=== PATIENT | female | born 1995 | race Caucasian/White ===

== ENCOUNTER 2024-12-06 15:54 | Inpatient (IN) | payer OTHER, SELFPAY ==
[2024-12-06 12:23] VITALS: BP 137/77
--- NOTE | 2024-12-06 12:50 | ED.GENMED ---
History of Present Illness
<Usha Becker PA-C - Last Filed: 12/06/24 15:18>
General
Chief Complaint: Skin Problem
Source: patient
Exam Limitations: none
Time Seen by Provider: 12/06/24 12:49
Nursing documentation reviewed up to this point in time: agreed with
History of Present Illness
History of Present Illness:
29-year-old female presents emergency department today with concerns of redness and swelling noted to her right index finger. Patient states that yesterday, she was playing with her kitten when she got bit. Patient stated that she started to
develop redness right away and went to her PCP who started her on on Augmentin. She had 2 doses of Augmentin. Patient reports that overnight, she started to develop worsening swelling and noticed that the redness started to spread down her hand.
She now states that her finger is firm and she cannot bend her finger. She denies any fevers or chills, nausea or abdominal pain, chest pain, shortness of breath. She history any medications daily. She states that she has been feeling well the
past few days.
Past History
<Usha Becker PA-C - Last Filed: 12/06/24 15:18>
Past History
ED Past Medical History: None
ED Past Surgical History: None
Social History
Tobacco: Non-smoker
Drug: None
Personal: Single
Living: with family
Review of Systems
<Usha Becker PA-C - Last Filed: 12/06/24 15:18>
Review of Systems
All Other Systems: ROS reviewed and negative except as documented in HPI and ROS
Phy Exam
<Usha Becker PA-C - Last Filed: 12/06/24 15:18>
Physical Exam
Physical Exam:
General: Patient is well appearing and in no acute distress; non-toxic
Skin: Warm and dry, erythema and swelling noted over right first index finger extending to first mcp
Head: Normocephalic, atraumatic
Eyes: Sclera non-icteric. EOMs intact.
Cardiac: Regular rate and rhythm, no murmurs
Peripheral Vascular: Brisk capillary refill
Pulm: Normal respiratory effort no wheezes, rales, rhonchi
Musculoskeletal: Patient limited ability to flex right index finger, tenderness to palpation along the flexor sheath.
Neuro: CN II-XII intact, no focal neurologic deficits.
Psychiatric: Appropriate mood and affect.
Course
<Usha Becker PA-C - Last Filed: 12/06/24 15:18>
Orders/Labs/Results
Orders:
Orders
12/06/24 12:30
IV Insert/Care/Rem.- Treatment PRN
12/06/24 12:31
Test Result ONCE
12/06/24 12:48
Complete Blood Count/With Diff Urgent
Comprehensive Metabolic Panel Urgent
HCG, Serum Qualitative Screen Urgent
Comment: Notify provider if positive test present
12/06/24 13:23
CR Finger(s)/thumb Min 2 Vw Rt Urgent
Comment:
Reason For Exam: right finger swelling, bite
12/06/24 13:26
Ketorolac [Toradol] 15 mg IV NOW STA
12/06/24 14:31
Ampicillin/Sulbactam 3 G [Unasyn] 3 gm 0.9% Sodium Chloride 100 ml [Nss] 100 ml IV NOW
12/06/24 14:33
Vancomycin [Vancocin] 2,000 mg 0.9% Sodium Chloride 500 ml [Nss] 500 ml IV NOW
Abnormal Lab Results
12/06/24
12:48
MCH 31.7 H pg
(27.0-31.0)
MPV 10.9 H fL
(7.4-10.4)
Monocytes % 10.2 H %
(1.7-9.3)
Glucose 124 H mg/dl
(70-99)
Total Bilirubin 1.4 H mg/dl
(0.2-1.3)
12/06/24 12:48
12/06/24 12:48
Vital Signs
Initial and Last Documented VS:
Initial Vital Signs
Temp Pulse Resp BP Pulse Ox
98.1 F 92 18 137/77 98
12/06/24 12:23 12/06/24 12:23 12/06/24 12:23 12/06/24 12:23 12/06/24 12:23
Last Documented Vital Signs
Temp Pulse Resp BP Pulse Ox
98.1 F 92 18 137/77 98
12/06/24 12:23 12/06/24 12:23 12/06/24 12:23 12/06/24 12:23 12/06/24 12:23
<Migdalia Moore MD - Last Filed: 12/06/24 13:36>
Orders/Labs/Results
Orders:
Orders
12/06/24 12:30
IV Insert/Care/Rem.- Treatment PRN
12/06/24 12:31
Test Result ONCE
12/06/24 12:48
Complete Blood Count/With Diff Urgent
Comprehensive Metabolic Panel Urgent
HCG, Serum Qualitative Screen Urgent
Comment: Notify provider if positive test present
12/06/24 13:23
CR Finger(s)/thumb Min 2 Vw Rt Urgent
Comment:
Reason For Exam: right finger swelling, bite
12/06/24 13:26
Ketorolac [Toradol] 15 mg IV NOW STA
12/06/24 14:31
Ampicillin/Sulbactam 3 G [Unasyn] 3 gm 0.9% Sodium Chloride 100 ml [Nss] 100 ml IV NOW
12/06/24 14:33
Vancomycin [Vancocin] 2,000 mg 0.9% Sodium Chloride 500 ml [Nss] 500 ml IV NOW
Abnormal Lab Results
12/06/24
12:48
MCH 31.7 H pg
(27.0-31.0)
MPV 10.9 H fL
(7.4-10.4)
Monocytes % 10.2 H %
(1.7-9.3)
Glucose 124 H mg/dl
(70-99)
Total Bilirubin 1.4 H mg/dl
(0.2-1.3)
12/06/24 12:48
12/06/24 12:48
Vital Signs
Initial and Last Documented VS:
Initial Vital Signs
Temp Pulse Resp BP Pulse Ox
98.1 F 92 18 137/77 98
12/06/24 12:23 12/06/24 12:23 12/06/24 12:23 12/06/24 12:23 12/06/24 12:23
Last Documented Vital Signs
Temp Pulse Resp BP Pulse Ox
98.1 F 92 18 137/77 98
12/06/24 12:23 12/06/24 12:23 12/06/24 12:23 12/06/24 12:23 12/06/24 12:23
<Usha Becker PA-C - Last Filed: 12/06/24 15:18>
MDM/Problems Addressed
Differential Diagnosis Includes:
see below
MDM/Problems Addressed:
NUMBER AND COMPLEXITY OF PROBLEMS ADDRESSED AT THE ENCOUNTER
� Chronic conditions affecting care: n/a
� Acute Exacerbation and/or Progression of Chronic Illness:
� Differential Diagnosis includes: flexor tenosynovitis, cellulitis, abrasion, laceration, erysipelas
AMOUNT AND/OR COMPLEXITY OF DATA TO BE REVIEWED AND ANALYZED
� I performed an independent evaluation of and my interpretation is:
X-rays: no fracture or dislocation on evidence of osteomyelitis
Laboratory Studies: no leukocytosis noted
Other:
� Review of other/old records: Reviewed previous records, patient seen on 07/05/2014 for cellulitis of the leg and foot
� Clinical information was obtained by an independent historian: mom present with patient who also provided history
� Prescriptions/Medications Considered but not given: none
� Further testing considered but not performed: n/a
RISK OF COMPLICATIONS AND/OR MORBIDITY OR MORTALITY OF PATIENT MANAGEMENT
� Social determinants of health affecting care: n/a
� Discussion with other providers: ER attending
� Escalation of care including admission/observation vs risk of discharge considered:
29-year-old female presents emergency department today with redness and swelling of her right index finger. Patient reports that this occurred following a cat bite. She had 2 doses of Augmentin and overnight noticed rapid swelling of her finger.
On exam, she holds her finger in slight passive flexion and has a lot of tenderness to palpation over the flexor tendon sheath. Concern for possible flexor tenosynovitis versus cellulitis. Did discuss case with orthopedist on-call, plan now to
admit for IV antibiotics and patient will be assessed by orthopedist, patient will not go to the OR at this time. She is afebrile. No leukocytosis, no systemic symptoms. Unasyn vancomycin started. Case discussed with hospitalist.
<Usha Becker PA-C - Last Filed: 12/06/24 15:18>
*Critical Care Note
Total Time (30-74mins, 75-104mins- exclusive of procedures): Not Applicable
ED Attending Note
<Usha Becker PA-C - Last Filed: 12/06/24 15:18>
-
Portions of this chart may have been created with voice recognition software.� Occasional wrong word or��sound alike� substitutions may have occurred due to the inherent limitations of voice recognition software.
<Migdalia Moore MD - Last Filed: 12/06/24 13:36>
ED Attending Note
Patient seen and examined by attending physician: Yes
I performed the substantive portion of visit, reviewed & personally made and approve the management plan that is documented in note by myself or IGNACIO.: Yes
ED Attending Note:
I have seen and evaluated the patient with a [id number] encounter. I have spoken to the [PA] and involved in the medical history, the physical exam, medical decision making.
Evaluation and management service: agree unless noted differently below.
Results interpretation: agree unless noted differently below.
29-year-old female presenting to the emergency department with finger swelling after a cat bite. Patient states about 24 hours ago she was bit by a cat. She went to her primary care doctor who started her on Augmentin. She has had 2 doses. She
states that since then the redness and swelling has worsened. She denies any fevers. She is having some paresthesias. She is having difficulty with flexion secondary to pain. On exam patient's finger is held in flexion with erythema across the
dorsal MCP that wraps around to the middle phalanx. She does have tenderness over her flexor tendon. She does not have any pain with extension. She does have pain with flexion at the DIP will significantly and mild pain at the PIP and MCP.
Concern for flexor tenosynovitis given that she does have some of the clinical signs. Will discuss with orthopedics. Patient will likely need admission for IV antibiotics.
Discharge Plan
Departure
Patient Disposition: Admit
Date of Disposition: 12/06/24
Time of Disposition: 14:54
Admit to: Med/Surg
Presentation/result/management discussed w/ accepting MD/DO: Hospitalist
Condition: Fair
Discharge Problem:
Cat bite of finger
Prescriptions:
No Action
amoxicillin-pot clavulanate [Augmentin] 875-125 mg Tablet
1 tab PO BID
lisdexamfetamine 40 mg Capsule
40 mg PO DAILYPRN PRN (Reason: focus)
melatonin 10 mg Tablet
10 mg PO HSPRN PRN (Reason: sleep)
Beef Womens Vitality
1 cap PO DAILY
Nutrafol Women Hair Supplement
1 cap PO DAILY
Referrals:
Latrice Locke MD [Family Provider] -
Interventions
Interventions:
*Risk Screen - Suicide Last Done: 12/06/24 12:23
*General Assessment Last Done: 12/06/24 12:23
*Neglect/Abuse Screening Last Done: 12/06/24 12:23
ED-Skin Assessment Last Done: 12/06/24 12:59
Discharge Date and Time
Print Language: ERITREAN
[2024-12-06 13:04] LABS: % Basophils 0.8 % (0-2); % Eosinophils 1.9 % (0-6); % Immature Granulocytes 0.3 % (0-0.5); % Lymphocytes 22.3 % (20.5-51.1); % Monocytes 10.2 % (1.7-9.3); % Neutrophils 64.5 % (42.2-75.2); Absolute Basophils 0.1 10^3/uL (0-0.2); Absolute Eosinophils 0.1 10^3/uL (0-0.7); Absolute Lymphocytes 1.4 10^3/uL (1.2-3.4); Absolute Monocytes 0.6 10^3/uL (0.1-0.6); Hematocrit 41.1 % (37.0-47.0); Mean Corp Hgb Conc. 34.1 g/dL (33.0-37.0); Mean Corpuscular Hgb 31.7 pg (27.0-31.0); Mean Corpuscular Volume 93.2 fL (81.0-99.0); Mean Platelet Volume 10.9 fL (7.4-10.4); Nucleated Red Blood Cells % 0 %; Platelet Count 197 10^3/uL (130-400); Red Blood Cell Count 4.41 10^6/uL (4.20-5.40); Red Cell Dist. Width 12.5 % (11.5-14.5); White Blood Cell Count 6.2 10^3/uL (4.8-10.8)
[2024-12-06 13:20] LABS: ALT (SGPT) 25 U/L (0-35); AST (SGOT) 24 U/L (14-36); Albumin 4.3 g/dl (3.5-5.0); Alkaline Phosphatase 59 U/L (38-126); Blood Urea Nitrogen 14 mg/dl (7-17); Calcium 8.8 mg/dl (8.4-10.2); Carbon Dioxide 23 mmol/L (22-30); Chloride 104 mmol/L (98-107); Glucose 124 mg/dl (70-99); Potassium 4.2 mmol/L (3.5-5.1); Sodium 137 mmol/L (135-145); Total Bilirubin 1.4 mg/dl (0.2-1.3); Total Protein 6.7 g/dl (6.3-8.2); eGFR > 60.00
[2024-12-06] MEDS: TORADOL 15 MG IV (13:33)
[2024-12-06 13:51] LABS: HCG, Serum Qualitative Screen Negative
[2024-12-06 14:16] VITALS: BMI 29.2
[2024-12-06] MEDS: UNASYN IV ×2 (14:53→20:26)
--- NOTE | 2024-12-06 15:24 | HPS.HSE ---
Family Physician
-
Family Physician: Latrice Locke MD
Chief Complaint
-
right index finger pain
History of Present Illness
Ms. Becky Hawkins is a 29 yo woman without significant past medical history presents to the ER with redness and swelling noted to right index finger.
She went to see her friend's kittens yesterday and got bit. She developed redness and was prescribed Augmentin by PCP. Redness and swelling progressed, today her finger is difficulty to bend bringing her to the ER.
She states the kittens are up to date with shots and patient received TDap vaccine at PCP office yesterday.
No fevers/chills. No chest pain or shortness of breath. No nausea/vomiting/diarrhea.
Medical History
Past Medical History
Past Medical History: Reports None
Past Surgical History: Reports None
Social History
Tobacco: Non-smoker
Alcohol: Occasional
Family History
Family History: Not pertinent
Allergies / Home Medications
Allergies reflects when Allergies were last updated in [facility].
Home Medications with original date entered in [facility]
Allergy/Medication List:
Allergies
Allergy/AdvReac Type Severity Reaction Status Date / Time
gluten Allergy Nausea / Verified 12/06/24 14:41
Vomiting
Home Medications
Beef Womens Vitality 1 cap PO DAILY 12/06/24
Nutrafol Women Hair Supplement 1 cap PO DAILY 12/06/24
amoxicillin 875 mg-potassium clavulanate 125 mg tablet 1 tab PO BID 12/06/24
lisdexamfetamine 40 mg capsule 40 mg PO DAILYPRN PRN focus 12/06/24
melatonin 10 mg tablet 10 mg PO HSPRN PRN sleep 12/06/24
Review of Systems
-
History Source: Patient
A 12 point ROS was completed and negative except as noted: Yes
Physical Exam
Vital Signs
Vital Signs
Temp Pulse Resp BP Pulse Ox
98.1 F 92 18 137/77 98
12/06/24 12:23 12/06/24 12:23 12/06/24 12:23 12/06/24 12:23 12/06/24 12:23
Physical Exam
General: No Apparent Distress and Conversant
HEENT: PERRLA
Respiratory: Clear; No Wheezes
Cardiac: S1/S2 and Regular Rhythm
GI: Soft and Non Tender
Musculoskeletal: Other (right second digit with inability to flex PIP, redness slightly progressed post marked borders from yesterday, tender to touch )
Skin: Warm and Dry; No Rash
Neuro: AO x 3
Psych: Calm
Laboratory Results
-
12/06/24 12:48
12/06/24 12:48
Laboratory Results
Total Bilirubin 1.4 mg/dl (0.2-1.3) H 12/06/24 12:48
AST 24 U/L (14-36) 12/06/24 12:48
ALT 25 U/L (0-35) 12/06/24 12:48
Alkaline Phosphatase 59 U/L (38-126) 12/06/24 12:48
Data Reviewed
-
Diagnostic Radiology: Report Reviewed by me
Lab Data: Labs Reviewed by me
Impression/Plan
-
Ms. Becky Hawkins is a 29 yo woman without significant past medical history presents to the ER with redness and swelling noted to right index finger post cat bite, with progression after initiation or oral antibiotics.
Triage VS: T 98.1, P 92, RR 18, BP 137/77, SpO2 98%
Labs: WBC 6.2, Hg 14.0, PLT 197, Na 137, K+ 4.2, Cl 104, CO2 23, Cr 0.7, Glucose 124, T. Bili 1.4, AST 24, ALT 25, Alk Phos 59
HCG neg
Finger X-Ray
IMPRESSION:
Mild diffuse swelling about the second digit. No acute fracture or dislocation. Joint spaces are intact. No radiopaque foreign bodies. No overt radiographic evidence for osteomyelitis.
MAR: IV Unasyn, Vancomycin
Concern for Cellulitis versus Flexor Tenosynovitis s/p cat bite
-Per ER, spoke to Orthopedist semiconductor processing group leader and no plan for OR at this time
-admit to med/surg
-continue IV Unasyn, do not need to continue Vanc (confirmed with ID)
-per patient, kittens are up to date with vaccines; patient had TDAP vaccines yesterday at PCP office
-Ortho consult
-ID consult
-NPO after MN in case need for OR
-IV Toradol PRN pain
DVT PPx SCD (in case need for OR)
FULL CODE
[2024-12-06] MEDS: VANCOCIN 540 MG IV (15:28)
--- NOTE | 2024-12-06 17:06 | CON.ID ---
Consultation
-
Date/Time Consultation Requested: 12/06/2024 1539
Date/Time Consultation Performed: 12/06/2024 1700
Requesting Provider: Dr. White
Performing Provider: Dr. Echeverria
Reason for Consultation: Cat bite; right hand
Chief Complaint / Past History
History of Present Illness
Becky Hawkins is a 29-year-old female being evaluated at the request of Dr. White regarding a cat bite to the right hand. History is obtained from chart review, along with patient interview.
Patient is without significant past medical history and reports her friend recently acquired to [employer]. The patient notes that they were feral, and not completely acclimated to human interaction. Yesterday morning the kittens needed to go to the
vet, and while collecting them, one of the kittens bit the patient on the right index finger just distal to the MCP joint. The patient reports that she noted some blood at the site of the bite which she cleaned with soap and water. Later in the
day, the patient contacted her PCP and was prescribed Augmentin. The patient took a dose last evening, and again a dose this morning, but the right index finger area continued to swell and she was advised to come to the emergency room for further
evaluation.
At this time she denies any wrist pain but notes some mild amount of swelling. Overall the index finger does not have significant pain but 'feels weird' and swollen. She denies any lymphangitic spread up her forearm. She denies any fevers or
chills. She has received the tetanus shot in the ER. The patient reports that the kittens have been previously checked out by the vet, and have received rabies vaccinations.
Past History
Past Medical History: None
Past Surgical History: None
Allergy History:
gluten Allergy (Verified 12/06/24 14:41)
Nausea / Vomiting
Medications Reviewed: Yes
Current Antibiotics:
Unasyn
Social History
Tobacco: Non-Smoker
Alcohol: None
Drug: Marijuana (occ)
Personal: Single
Living: With Family
Employment: Employed
Family History
Family History: Not Pertinent
Review of Systems
Vital Signs
Temp Pulse Resp BP Pulse Ox
98.1 F 92 18 137/77 98
12/06/24 12:23 12/06/24 12:23 12/06/24 12:23 12/06/24 12:23 12/06/24 12:23
Physical Exam
Physical Exam
Constitutional: No Acute Distress, Comfortable and Non-toxic
Eyes: No Conjunctival Hemorrhage and Sclera Anicteric
Oral: No Thrush and No Ulcers
Cardiovascular: Regular Rate and S1/S2; Negative S3/S4
Pulmonary: Clear; Negative Wheezes, Rales or Rhonchi
Gastrointestinal: Soft, Non Tender and Non Distended
Extremities: Other (Right index finger swollen with mild to moderate erythema. Mild tenderness. Some decrease in range of motion. No purulence.)
Skin: Warm and Dry
Neurological: Awake and Alert
Psychological: Calm
Lab / Diagnostic Study Results
12/06/24 12:48
12/06/24 12:48
Abs Immat Gran (auto) 0.0 10^3/uL (0-0.05) 12/06/24 12:48
Absolute Neuts (auto) 4.0 10^3/uL (1.4-6.5) 12/06/24 12:48
Absolute Lymphs (auto) 1.4 10^3/uL (1.2-3.4) 12/06/24 12:48
Absolute Monos (auto) 0.6 10^3/uL (0.1-0.6) 12/06/24 12:48
Absolute Basos (auto) 0.1 10^3/uL (0-0.2) 12/06/24 12:48
Immature Gran % 0.3 % (0-0.5) 12/06/24 12:48
Neutrophils % 64.5 % (42.2-75.2) 12/06/24 12:48
Lymphocytes % 22.3 % (20.5-51.1) 12/06/24 12:48
Monocytes % 10.2 % (1.7-9.3) H 12/06/24 12:48
Eosinophils % 1.9 % (0-6) 12/06/24 12:48
Basophils % 0.8 % (0-2) 12/06/24 12:48
Microbiology Results
Imaging:
12/06/2024 X-ray right hand: Mild diffuse swelling around the second digit. No acute fracture or dislocation. Joint spaces are intact. No radiopaque foreign bodies. No overt radiographic evidence for osteomyelitis.
Assessment / Plan
Cat bite right index finger
Cellulitis right hand
Recommendations:
Continue Unasyn. No need for further vancomycin.
Follow-up for clinical improvement. Patient will likely need 24 to 36 hours of IV antibiotics, and if improved at that point can be transitioned back to Augmentin.
Extremity elevation.
Follow white count and temperature curve.
Care Review
Plan reviewed with: Physician (Hospitalist)
[2024-12-06] MEDS: BENADRYL 25 MG IV (17:07)
[2024-12-06 17:55] VITALS: BP 136/75
[2024-12-06 18:02] VITALS: BMI 29.0
--- NOTE | 2024-12-06 22:18 | CON.MD ---
Consultation - Medical
-
Full consult dictated. 29 yo RHD female admitted for cat bite to right hand which occurred yesterday while visiting a friend. She noted increased pain and swelling and was brought to and admitted for IV antibiotics for cellulitis. Patient seen
by ID and started on Unasyn. Patient denies fevers but notes swelling and erythema without drainage. She denies streaking. She had a reaction to Vancomycin and it was discontinued. Parents at the patients bedside. Patient notes that erythema is
improving about the dorsum of the hand. Puncture wounds noted about the PIP joint with swelling and erythema. Erythema outlined on hand and finger. No wrist involvement and no streaking. NVI distally. Labs reveal normal WBC. Xrays reveal no
fractures but soft tissue swelling noted. Impression: Cat bite with cellulitis. No evidence of flexor tenosynovitis currently. Continue Unasyn. Will follow. Erythema improving. NPO after MN in case symptoms worsen significantly overnight.
[2024-12-06 23:20] VITALS: BP 111/69
[2024-12-07] MEDS: UNASYN IV ×4 (01:04→21:08)
[2024-12-07] MEDS: MELATONIN 10 MG PO (04:09)
[2024-12-07 06:13] LABS: % Basophils 0.9 % (0-2); % Eosinophils 3.4 % (0-6); % Immature Granulocytes 0.2 % (0-0.5); % Lymphocytes 25.6 % (20.5-51.1); % Monocytes 10.3 % (1.7-9.3); % Neutrophils 59.6 % (42.2-75.2); Absolute Basophils 0.1 10^3/uL (0-0.2); Absolute Eosinophils 0.2 10^3/uL (0-0.7); Absolute Lymphocytes 1.6 10^3/uL (1.2-3.4); Absolute Monocytes 0.7 10^3/uL (0.1-0.6); Absolute Neutrophils 3.8 10^3/uL (1.4-6.5); Hematocrit 40.4 % (37.0-47.0); Hemoglobin 13.6 g/dL (12.0-16.0); Mean Corp Hgb Conc. 33.7 g/dL (33.0-37.0); Mean Corpuscular Volume 95.1 fL (81.0-99.0); Mean Platelet Volume 11.2 fL (7.4-10.4); Nucleated Red Blood Cells % 0 %; Platelet Count 188 10^3/uL (130-400); Red Blood Cell Count 4.25 10^6/uL (4.20-5.40); Red Cell Dist. Width 12.6 % (11.5-14.5); White Blood Cell Count 6.4 10^3/uL (4.8-10.8)
[2024-12-07 06:45] LABS: Blood Urea Nitrogen 16 mg/dl (7-17); Calcium 8.5 mg/dl (8.4-10.2); Carbon Dioxide 26 mmol/L (22-30); Chloride 105 mmol/L (98-107); Estimated Creatinine Clearance > 125 ml/min; Glucose 90 mg/dl (70-99); Magnesium 2.1 mg/dl (1.6-2.3); Potassium 4.4 mmol/L (3.5-5.1); Sodium 139 mmol/L (135-145); eGFR > 60.00
[2024-12-07 07:25] VITALS: BP 89/63
[2024-12-07 08:30] VITALS: BP 100/68
--- NOTE | 2024-12-07 08:50 | W.PN.UPDATE ---
Update Note
Progress Note Update
Patient seen and evaluated by Orthopedic surgery this morning. The patient is a 29-year-old [id number] female admitted for cat bite to right index finger. DOI: 12/05/2024. Since admission, she endorses improvement with erythema, edema, as
well as pain. She denies any fevers, chills or night sweats. Labs reveal normal WBC. Afebrile.
PE: Physical examination of the right hand, with attention to the right index finger, reveals hue of erythema over the dorsum of the hand and right index finger. Erythema outlined on hand and finger; does not extend beyond markings. 2 puncture
wounds noted about the extensor and flexor aspects of the PIP joint. No drainage. No wrist involvement and no streaking. Generalized edema of right index finger in comparison to the contralateral side. Mild tenderness to palpation. No pain with
passive extension of the digit. Unable to demonstrate a full composite fist, although patient reports improvement with PIP joint ROM. Sensation intact to light touch. Capillary refill is less than 2 seconds.
Assessment: Cat bite with cellulitis. No evidence for flexor tenosynovitis currently. Patient endorses improvement in symptoms since admission.
Plan:
1) Continue with IV antibiotics per ID. Currently on Unasyn.
2) Diet ordered.
3) Encouraged digital range of motion as tolerated. Ice therapy and elevation for edema control. May consider incorporation of warm dilute Hibiclens soaks TID.
4) Orthopedic surgery will continue to follow.
--- NOTE | 2024-12-07 11:31 | W.PN.ID1 ---
Date of Service
Date of Service: December 07, 2024
Today's Communication
Continue antibiotics.
Assessment / Plan
Cat bite right index finger
Cellulitis right hand
Possible drug rash - vanco vs unasyn
Recommendations:
Continue Unasyn.
Follow for clinical improvement. If continued decrease swelling and erythema tomorrow, will likely transition back to Augmentin.
Extremity elevation.
Follow white count and temperature curve.
Follow-up for any change in apparent rash.
����������������������������������������������������������
Chief Complaint
-: Other (Right hand cat bite)
Subjective / Review of Systems
Patient seen and examined. Reports right hand is feeling improved. Nursing contacted me earlier this morning and noted a very fine erythematous rash on the arms, and possibly the trunk. At present, the patient denies any pruritus. Does admit to
having scalp pruritus following vancomycin infusion yesterday.
Review of Systems: No Fever and No Chills
Vital Signs / Physical Exam
Vital Signs
Vital Signs
Temp Pulse Resp BP Pulse Ox
98 F 67 16 89/63 99
12/07/24 07:25 12/07/24 07:25 12/07/24 07:25 12/07/24 07:25 12/07/24 07:25
Physical Exam
Constitutional: No Acute Distress, Comfortable and Non-toxic
Pulmonary: Non Labored
Gastrointestinal: Non Distended
Musculoskeletal: Other (Right index finger with decreased erythema and swelling. Increased ROM)
Skin: Rash (Very faint erythematous macular/reticular rash noted on arms, and to a lesser degree on trunk. Nonpruritic)
Neurological: Awake and Alert
Psychological: Calm
Objective Data
Lab Data
Lab Results
12/07/24 05:46
12/07/24 05:46
Estimated Creat Clear > 125 ml/min 12/07/24 05:46
Total Bilirubin 1.4 mg/dl (0.2-1.3) H 12/06/24 12:48
AST 24 U/L (14-36) 12/06/24 12:48
ALT 25 U/L (0-35) 12/06/24 12:48
Alkaline Phosphatase 59 U/L (38-126) 12/06/24 12:48
Most recent labs reviewed.
Imaging:
12/06/2024 X-ray right hand: Mild diffuse swelling around the second digit. No acute fracture or dislocation. Joint spaces are intact. No radiopaque foreign bodies. No overt radiographic evidence for osteomyelitis.
--- NOTE | 2024-12-07 12:39 | W.PN.HOSP.TC ---
Today's Communication/Plan
-
Monitor vital signs see plan
Continue antibiotics
If continues to improve then hopeful discharge tomorrow
Assessment / Plan
Assessment / Plan
General: No Apparent Distress and Conversant
HEENT: PERRLA
Respiratory: Clear; No Wheezes
Cardiac: S1/S2 and Regular Rhythm
Musculoskeletal: Other (right second digit with inability to flex PIP, redness slightly )
Neuro: AO x 3
Psych: Calm
Cellulitis right hand secondary to cat bite
Concern for tenosynovitis
Continue with antibiotics per infectious disease
No plan for surgery per Ortho
Possible drug-related rash secondary to vancomycin versus Unasyn
Mild bilirubin elevation
No abdominal pain
Follow-up outpatient
DVT prophylaxis
SCD's
Full code
Anticipated Discharge: Within 24 hours
Subjective/Interval History
-
Date of Service: December 07, 2024
Denies pain
Objective Data
-
Labs:
Laboratory Results
12/07/24
05:46
WBC 6.4
Hgb 13.6
Hct 40.4
Plt Count 188
Sodium 139
Potassium 4.4
Chloride 105
Carbon Dioxide 26
BUN 16
Creatinine 0.8
Glucose 90
Calcium 8.5
Vital Signs:
Vital Signs
Temp Pulse Resp BP Pulse Ox
98 F 67 16 89/63 99
12/07/24 07:25 12/07/24 07:25 12/07/24 07:25 12/07/24 07:25 12/07/24 07:25
I&O
12/06/24 12/07/24 12/08/24
06:59 06:59 06:59
Intake Total 240 / 240
Output Total 2 / 2
Balance 238 / 238
[2024-12-07 15:05] VITALS: BP 100/76
[2024-12-07] MEDS: BENADRYL 50 MG PO ×2 (16:57→22:57)
--- NOTE | 2024-12-07 17:37 | CM ---
Alert awake oriented patient who lives with her parents Savannah and Jonathan who lives in a 2 stroy home with 1 stesp to enter and 14 steps to bed/bath room She is independent in driving and in all activities of daily living.Offered VN she declined.No
adaptive devices.
Never had VN/SNF
Pharmacy [facility] [address]
PCP Efrain
PLAN Home no needs
[2024-12-07 23:33] VITALS: BP 104/58
[2024-12-08] MEDS: UNASYN IV ×2 (01:02→07:50)
[2024-12-08] MEDS: BENADRYL 50 MG PO (04:58)
[2024-12-08 07:20] VITALS: BP 110/54
[2024-12-08 08:19] LABS: % Basophils 0.4 % (0-2); % Eosinophils 5.8 % (0-6); % Immature Granulocytes 0.4 % (0-0.5); % Lymphocytes 15.2 % (20.5-51.1); % Monocytes 9.1 % (1.7-9.3); % Neutrophils 69.1 % (42.2-75.2); Absolute Eosinophils 0.5 10^3/uL (0-0.7); Absolute Lymphocytes 1.2 10^3/uL (1.2-3.4); Absolute Monocytes 0.7 10^3/uL (0.1-0.6); Absolute Neutrophils 5.5 10^3/uL (1.4-6.5); Hematocrit 43.4 % (37.0-47.0); Hemoglobin 14.9 g/dL (12.0-16.0); Mean Corp Hgb Conc. 34.3 g/dL (33.0-37.0); Mean Corpuscular Hgb 32.3 pg (27.0-31.0); Mean Corpuscular Volume 93.9 fL (81.0-99.0); Mean Platelet Volume 11.4 fL (7.4-10.4); Nucleated Red Blood Cells % 0 %; Platelet Count 196 10^3/uL (130-400); Red Blood Cell Count 4.62 10^6/uL (4.20-5.40); Red Cell Dist. Width 12.5 % (11.5-14.5)
--- NOTE | 2024-12-08 08:38 | W.PN.UPDATE ---
Update Note
Progress Note Update
Patient seen and evaluated by Orthopedic surgery this morning. Feeling even better than yesterday. Afebrile. WBC within normal limits. Erythema, edema, as well as pain with continued improvement since evaluation yesterday.
PE: Physical examination of the right hand, with attention to the right index finger, reveals significantly improved erythema over the dorsum of the hand and right index finger. 2 puncture wounds noted about the extensor and flexor aspects of the
PIP joint. No drainage. No wrist involvement and no streaking. Generalized edema of the right index finger improved. No significant tenderness to palpation. No pain with passive extension of the digit. She is almost able to demonstrate a full
composite fist without pain. Sensation intact to light touch. Capillary refill is less than 2 seconds.
Assessment: Cat bite with cellulitis; improved.
Plan:
1) Patient has made large improvements since initiation of IV antibiotics. Unfortunately, she is dealing with rash/pruritus. Much less swelling, but understands this will persist for a bit.
2) Continue with IV antibiotics per ID recommendation, and treatment per the primary team. Discussed with ID, plan to transition back to PO Abx for 10-14 day course upon discharge.
3) Encouraged digital range of motion as tolerated. Ice therapy and elevation for edema control. May consider incorporation of warm dilute Hibiclens soaks TID. As swelling improves, so will stiffness and ROM.
4) Orthopedics follow-up as an outpatient in 1 week for clinical assessment. Orthopedic surgery to sign off. D/C plan with follow-up info updated.
--- NOTE | 2024-12-08 09:00 | W.PN.ID1 ---
Date of Service
Date of Service: December 08, 2024
Today's Communication
Continue antibiotics. See below�
Assessment / Plan
Cat bite right index finger
Cellulitis right hand
Possible drug rash - vanco vs unasyn
Recommendations:
Overall, right index finger is looking good.
Discontinue further Unasyn. Given rash progression, will avoid ampicillin.
Will transition to oral cephalexin 500 mg p.o. 4 times daily and doxycycline 100 mg p.o. twice daily for an additional 10 to 14 days.
I have asked the patient to call me tomorrow or the next day and tell me how the rash has doing.
Will follow-up in office if necessary.
Benadryl as needed.
����������������������������������������������������������
Chief Complaint
-: Other (Right second finger hand cat bite)
Subjective / Review of Systems
Patient seen and examined. Reports right index finger he is feeling improved. Unfortunately, has had some extension of her rash, which is now somewhat itchy.
Vital Signs / Physical Exam
Vital Signs
Vital Signs
Temp Pulse Resp BP Pulse Ox
98 F 64 16 110/54 99
12/08/24 07:20 12/08/24 07:20 12/08/24 07:20 12/08/24 07:20 12/08/24 07:20
Physical Exam
Constitutional: No Acute Distress, Comfortable and Non-toxic
Eyes: Sclera Anicteric
Pulmonary: Non Labored; Negative Wheezes
Extremities: Other (Right index finger with decreased swelling, decreased erythema, increased range of motion. No tenderness with palpation.)
Skin: Rash (Generalized mild erythematous rash on body. Few areas of pustulosis noted on neck.)
Neurological: Awake and Alert
Psychological: Calm
Objective Data
Lab Data
Lab Results
12/08/24 07:05
12/07/24 05:46
Estimated Creat Clear > 125 ml/min 12/07/24 05:46
Total Bilirubin 1.4 mg/dl (0.2-1.3) H 12/06/24 12:48
AST 24 U/L (14-36) 12/06/24 12:48
ALT 25 U/L (0-35) 12/06/24 12:48
Alkaline Phosphatase 59 U/L (38-126) 12/06/24 12:48
Most recent labs reviewed.
Imaging:
12/06/2024 X-ray right hand: Mild diffuse swelling around the second digit. No acute fracture or dislocation. Joint spaces are intact. No radiopaque foreign bodies. No overt radiographic evidence for osteomyelitis.
Care Review
Plan reviewed with: Physician (Hospitalist; Orthopedics)
[2024-12-08] MEDS: VIBRAMYCIN 100 MG PO (09:49)
--- NOTE | 2024-12-08 10:30 | W.PN.HOSP.TC ---
Today's Communication/Plan
-
monitor vitals
see plan
dc today on PO abx
patient will f/u with ID and ortho outpatient
time of discharge 36 minutes
Assessment / Plan
Assessment / Plan
General: No Apparent Distress and Conversant
HEENT: PERRLA
Respiratory: Clear; No Wheezes
Cardiac: S1/S2 and Regular Rhythm
Musculoskeletal: Other (right second digit mild erythema,improving)
Neuro: AO x 3
Psych: Calm
Cellulitis right hand secondary to cat bite
Concern for tenosynovitis
Continue with antibiotics per infectious disease
No plan for surgery per Ortho
Possible drug-related rash secondary to vancomycin versus Unasyn; abx switched to keflex and doxy. Patient will f/u with ID outpatient
Mild bilirubin elevation
No abdominal pain
Follow-up outpatient
DVT prophylaxis
SCD's
Full code
Anticipated Discharge: Today
Subjective/Interval History
-
Date of Service: December 08, 2024
denies pain
Objective Data
-
Labs:
Laboratory Results
12/08/24
07:05
WBC 8.0
Hgb 14.9
Hct 43.4
Plt Count 196
Vital Signs:
Vital Signs
Temp Pulse Resp BP Pulse Ox
98 F 64 16 110/54 99
12/08/24 07:20 12/08/24 07:20 12/08/24 07:20 12/08/24 07:20 12/08/24 07:20
I&O
12/07/24 12/08/24 12/09/24
06:59 06:59 06:59
Intake Total 2039
Output Total
Balance 2037
--- NOTE | 2024-12-08 10:35 | W.DCSUMMARY ---
Discharge Summary
Discharge Data
Date of Admission: 12/06/24
Date of Discharge: 12/08/24
-
Pending Results: No
Hospital Course
29-year-old female came to the hospital after cat bite with right hand cellulitis and suspected tenosynovitis. X-ray was concerning for cellulitis. Patient was seen by orthopedics and infectious disease throughout hospitalization. Since patient
symptoms were improving with antibiotics orthopedics did not recommended any surgery and wanted patient to follow-up with them outpatient. Patient had up possible drug-related rash secondary to either vancomycin or Unasyn. Given these findings
infectious disease switched patient's antibiotics to Keflex and doxycycline on discharge. Patient also had mild bilirubin elevation for which she was instructed to follow-up outpatient for repeat labs with PCP. Once her symptoms continue to
improve, she was then discharged home with instructions to follow-up with all her physicians outpatient.
Discharge Plan
-
Patient Disposition: Home (Routine Discharge)
Discharge Diagnosis/Procedures: Cellulitis right hand secondary to cat bite
Concern for tenosynovitis
Mild bilirubin elevation
Diet: As tolerated
Activity: As tolerated
Driving Restrictions: As prior to admission
Bathing Restrictions: None
Blood Work: CMP next week with Pcp
Referrals:
Josh Downs MD [Active] - in one week
Mervin Echeverria DO [Active] - in one to two weeks
Latrice Locke MD [Family Provider] - in less than 1 week
Prescriptions:
New
diphenhydramine HCl 50 mg Capsule
25 mg PO Q6HPRN PRN (Reason: itch) Qty: 30 0RF
doxycycline hyclate 100 mg Capsule
100 mg PO Q12 14 Days Qty: 28 0RF
cephalexin 500 mg Capsule
500 mg PO QID 14 Days Qty: 56 0RF
Probiotic 10 billion cell capsule
10,000 mmu cells PO DAILY Qty: 20 0RF
Continued
lisdexamfetamine 40 mg Capsule
40 mg PO DAILYPRN PRN (Reason: focus)
melatonin 10 mg Tablet
10 mg PO HSPRN PRN (Reason: sleep)
Beef Womens Vitality
1 cap PO DAILY
Nutrafol Women Hair Supplement
1 cap PO DAILY
Discontinued
amoxicillin-pot clavulanate [Augmentin] 875-125 mg Tablet
1 tab PO BID
Discharge Orders:
Discharge Patient (As Directed); Ordered 12/08/24
Ordered By: Dalton Townsend
Discharge Date and Time
Discharge Date/Time: 12/08/24 13:21
Print Language: AUSTRAL[place]
--- NOTE | 2024-12-08 11:13 | CM ---
MD entered order for discharge.
Spoke with pt she said she was ready for discharge.
She said her parents were driving her home.
Offered VN she declined need.
PLAN Home no needs
[2024-12-08 11:51] VITALS: BP 123/81
== END 2024-12-08 13:21 | disposition home or self-care (01) | DRG 605 ==
LOC: 4 EAST ACU 15:54
PROVIDERS: Student in an Organized Health Care Education/Training Program; ADMITTING PHYSICIAN Student in an Organized Health Care Education/Training Program; ATTENDING PHYSICIAN Internal Medicine; CONSULT PHYSICIAN Internal Medicine Infectious Disease; CONSULT PHYSICIAN Orthopaedic Surgery; EMERGENCY PHYSICIAN Student in an Organized Health Care Education/Training Program; FAMILY PHYSICIAN Student in an Organized Health Care Education/Training Program
DX: S61.451A Open bite of right hand, initial encounter (principal); L03.113 Cellulitis of right upper limb; M79.644 Pain in right finger(s); W55.01XA Bitten by cat, initial encounter; L29.9 Pruritus, unspecified
CPT/HCPCS: 73140; 80048; 80053; 83735; 84703; 85025; 96365; 96366; 96367; 96375; 99284

== ENCOUNTER → 2025-09-11 16:36 | Outpatient (REF) | payer OTHER, SELFPAY | LOC: RAD 16:36 | PROVIDERS: ATTENDING PHYSICIAN Hospitalist | DX: M25.561 Pain in right knee (principal); M25.562 Pain in left knee | CPT/HCPCS: 73560 ==

== ENCOUNTER → 2025-09-25 11:53 | Outpatient (REF) | payer OTHER, SELFPAY | LOC: RAD 11:53 | PROVIDERS: ATTENDING PHYSICIAN Hospitalist | DX: M25.572 Pain in left ankle and joints of left foot (principal) | CPT/HCPCS: 73610 ==